=== PATIENT | male | born 1980 | race Caucasian/White ===

== ENCOUNTER 2023-11-09 11:39 | Emergency (ER) | payer BC, OTHER ==
[2023-11-09 13:03] LABS: Absolute Eosinophils 0.1 K/uL (0-0.5); Absolute Lymphocytes (CBC) 1.2 K/uL (0.7-4.9); Absolute Monocytes 0.4 K/uL (0.1-1.3); Absolute Neutrophil 9.3 K/uL (1.8-8.0); Basophils % 0.4 % (0-1.3); Eosinophils % 0.5 % (0-4.4); Hematocrit 49.4 % (39.6-49.0); Hemoglobin 16.4 g/dL (13.6-17.9); Lymphocytes % 11.2 % (15.3-44.8); MCH 30.1 pg (27.0-35.0); MCHC 33.3 g/dL (32.0-36.0); MCV 90.5 fL (80-100); MPV 7.9 fL (7.6-11.3); Monocytes % 3.9 % (3.3-12.3); Platelets 283 thou/uL (152-406); RBC Red Blood Cell Count 5.46 M/uL (4.33-5.43); Red Cell Distribution Width 13.8 % (12.1-15.2)
[2023-11-09 13:07] LABS: PT Prothrombin Time 11.5 SECONDS (9.4-12.5); Protime INR 1.05
[2023-11-09 13:26] LABS: ALT/SGPT 28 U/L (16-61); AST/SGOT 11 U/L (15-37); Albumin 3.8 g/dL (3.4-5.0); Albumin/Globulin Ratio 1.1 (1.1-1.8); Alkaline Phosphatase 53 U/L (45-117); Anion Gap 10.2 mEq/L (5.0-15.0); BUN Blood Urea Nitrogen 19 mg/dL (7-18); Bicarbonate 26 mEq/L (21-32); Bilirubin Total 0.4 mg/dL (0.2-1.0); Globulin 3.6 g/dL (2.3-3.5); Glomerular Filtration Rate 56 ml/min (=/>90); Glucose Level 139 mg/dL (74-106); NT PRO-BNP 8 pg/mL (<125); Potassium 4.2 mEq/L (3.5-5.1); Protein, Total 7.4 g/dL (6.4-8.2); Sodium Level 137 mEq/L (136-145)
--- NOTE | 2023-11-09 13:26 | RAD REPORT ---
EXAM DESCRIPTION: RAD - Chest Single View - 11/09/2023 1:05 pm CLINICAL HISTORY: CHEST PAIN COMPARISON: CHEST SINGLE VIEW dated 12/06/2014 FINDINGS: Lines: None. Lungs: No evidence of edema or pneumonia. Pleural: No significant pleural effusions or pneumothorax. Cardiac: The heart size is within normal limits. Mediastinum: Within normal limits. Bones: No acute fractures. Other: None IMPRESSION: No acute cardiopulmonary disease.
[2023-11-09 13:31] LABS: Bilirubin Direct < 0.2 mg/dL (0-0.2); Bilirubin Indirect, Calculated 0.2 mg/dL (0.2-0.8); Troponin High Sensitivity < 3.0 pg/mL (<58.9)
[2023-11-09] MEDS ORDERED: NA CHLORIDE 0.9% 500 ML ONE (13:44)
--- NOTE | 2023-11-09 14:05 | RAD REPORT ---
EXAM DESCRIPTION: CT - Chest For Pe Angio - 11/09/2023 1:50 pm CLINICAL HISTORY: CHEST PAIN COMPARISON: No comparisons TECHNIQUE: Dynamically enhanced axial 3 mm thick images of the chest were obtained during administra tion of <100> mL Isovue 370 IV contrast. Coronal and oblique reconstruction images were generated and reviewed. Exam utilizes a protocol for optimal evaluation of pulmonary arterial tree. Maximum intensity projections 3D imaging was utilized All CT scans are performed using dose optimization technique as appropriate and may include automated exposure control or mA/KV adjustment according to patient size. FINDINGS: Chest Wall: No suspicious thyroid nodules or pathologic lymphadenopathy. Lungs: No acute abnormality. Pleura: No significant effusions or pneumothorax. Mediastinum/zeinab: No pathologic lymphadenopathy. Pulmonary arteries/Aorta: No filling defect identified. No aortic aneurysm. Heart: No significant pericardial effusion. Normal heart size. Upper abdomen: No acute abnormality. Bones: No acute abnormality. IMPRESSION: Negative for pulmonary embolism. No acute findings in the chest.
--- NOTE | 2023-11-09 14:24 | ER ---
Nurse's Notes [facility] Name: Mc Cunningham Age: 42 yrs Sex: Male : 1980 Arrival Date: 11/09/2023 Time: 11:39 Bed 18 Private MD: Diagnosis: Chest pain, unspecified Presentation: 11/08 12:13 Chief complaint: Patient states: Pt c/o chest tightness, dizziness, SOB with exertion tl4 since returning from [place] on 10/25. Pt states he was treated for respiratory infection. No resolution of symptoms. Coronavirus screen: At this time, the client does not indicate any symptoms associated with coronavirus-19. Ebola Screen: No symptoms or risks identified at this time. Initial Sepsis Screen: Does the patient meet any 2 criteria? No. Patient's initial sepsis screen is negative. Does the patient have a suspected source of infection? No. Patient's initial sepsis screen is negative. Risk Assessment: Do you want to hurt yourself or someone else? Patient reports no desire to harm self or others. Onset of symptoms was October 26, 2023. 12:13 Method Of Arrival: Ambulatory tl4 12:13 Acuity: JAKE 2 tl4 Triage Assessment: 12:17 General: Appears in no apparent distress. Behavior is calm, cooperative. Pain: tl4 Complains of pain in chest. EENT: No signs and/or symptoms were reported regarding the EENT system. Neuro: Reports dizziness. Cardiovascular: Reports chest pain, shortness of breath, Capillary refill < 3 seconds Patient's skin is warm and dry. Respiratory: Reports shortness of breath pain with movement. Historical: - Allergies: 12:16 No Known Allergies; tl4 - PMHx: 12:16 None; tl4 - Immunization history:: Adult Immunizations unknown. - Infectious Disease History:: Denies. - Social history:: Smoking status: Patient reports the use of cigarette tobacco products, smokes one-half pack cigarettes per day. - Family history:: not pertinent. - Hospitalizations: : No recent hospitalization is reported. Screenin:49 [facility] ED Fall Risk Assessment (Adult) History of falling in the last 3 months, db including since admission No falls in past 3 months (0 pts) Confusion or Disorientation No (0 pts) Intoxicated or Sedated No (0 pts) Impaired Gait No (0 pts) Mobility Assist Device Used No (0 pt) Altered Elimination No (0 pt) Score/Fall Risk Level 0 - 2 = Low Risk Oriented to surroundings, Maintained a safe environment. Abuse screen: Denies threats or abuse. Denies injuries from another. Nutritional screening: No deficits noted. Tuberculosis screening: No symptoms or risk factors identified. Assessment: 12:49 Reassessment: Patient appears in no apparent distress at this time. Patient and/or db family updated on plan of care and expected duration. Pain level reassessed. Patient is alert, oriented x 3, equal unlabored respirations, skin warm/dry/pink. General: Appears in no apparent distress. comfortable, Behavior is calm, cooperative. Pain: Complains of pain in chest Pain does not radiate. Pain began suddenly. Neuro: Level of Consciousness is awake, alert, obeys commands, Oriented to person, place, time, situation, Appropriate for age. 14:00 Reassessment: Patient appears in no apparent distress at this time. Patient and/or db family updated on plan of care and expected duration. Pain level reassessed. Patient is alert, oriented x 3, equal unlabored respirations, skin warm/dry/pink. 15:02 Reassessment: Patient appears in no apparent distress at this time. Patient and/or db family updated on plan of care and expected duration. Pain level reassessed. Patient is alert, oriented x 3, equal unlabored respirations, skin warm/dry/pink. Patient states feeling better. Patient states symptoms have improved. Vital Signs: 12:13 BP 150 / 103; Pulse 102; Resp 20; Temp 97.8(TE); Pulse Ox 97% on R/A; Weight 90.26 kg; tl4 Height 5 ft. 8 in. ; Pain 5/10; 12:40 BP 132 / 91; Pulse 99; Resp 18; Pulse Ox 95% on R/A; db 13:30 BP 126 / 79; Pulse 94; Resp 18; Pulse Ox 95% on R/A; db 14:00 BP 127 / 81; Pulse 89; Resp 20; Pulse Ox 95% on R/A; db 14:30 BP 121 / 64; Pulse 92; Resp 18; Pulse Ox 95% on R/A; db 12:13 Body Mass Index 30.26 (90.26 kg, 172.72 cm) tl4 12:13 Pain Scale: Adult tl4 ED Course: 11:41 Patient arrived in ED. am2 12:03 Florentino Vidal MD is Attending Physician. rn 12:16 Triage completed. tl4 12:17 Arm band placed on right wrist. tl4 12:24 EKG done, by ED staff, reviewed by Florentino Vidal MD. nj1 12:37 Shirin Fischer, RN is Primary Nurse. db 12:45 Inserted saline lock: 20 gauge in left forearm, using aseptic technique. Blood db collected. 13:06 XRAY Chest (1 view) In Process Unspecified. EDMS 13:52 CT Chest For PE Angio In Process Unspecified. EDMS 14:11 Patient has correct armband on for positive identification. Bed in low position. Call db light in reach. Side rails up X 1. Provided Education on: labs and radiology. Client placed on continuous cardiac and pulse oximetry monitoring. NIBP monitoring applied. bus monitor on. Pulse ox on. NIBP on. Warm blanket given. Pillow given. 15:02 No provider procedures requiring assistance completed. IV discontinued, intact, db bleeding controlled, No redness/swelling at site. O2 via ROOM AIR. Administered Medications: 13:55 Drug: NS 0.9% IV 500 ml IV at bolus once Route: IV; Rate: bolus; Site: left forearm; db 15:04 Follow up: Response: No adverse reaction; IV Status: Completed infusion; IV Intake: db 500ml Medication: 14:11 VIS not applicable for this client. db Intake: 15:04 IV: 500ml; Total: 500ml. db Outcome: 14:24 Discharge ordered by . rn 15:02 Discharged to home ambulatory, db 15:02 Condition: stable 15:02 Discharge instructions given to patient, Instructed on discharge instructions, follow up and referral plans. 15:04 Patient left the ED. db Signatures: Dispatcher [employer] EDMS Florentino Vidal MD MD rn Moreno, Amanda am2 Shirin Fischer, RN RN db Aracelis Lehman RN RN nj1 Dallin Fuentes RN RN tl4
--- NOTE | 2023-11-09 14:24 | EDPHYS ---
Physician Documentation [facility] Name: Mc Cunningham Age: 42 yrs Sex: Male : 1980 Arrival Date: 11/09/2023 Time: 11:39 Bed 18 Private MD: ED Physician Florentino Vidal HPI: 11/08 13:30 This 42 yrs old Male presents to ER via Ambulatory with complaints of Chest Tightness, rn Dizziness, Jaw Pain. 13:30 The patient or guardian reports chest pain that is located primarily in the substernal rn area. 13:31 Onset: 2 week(s) ago. The pain does not radiate. Associated signs and symptoms: rn Pertinent positives: lightheadedness, shortness of breath, Pertinent negatives: abdominal pain, syncope. The chest pain is described as squeezing. Duration: The patient or guardian reports multiple episodes, that are intermittent. Modifying factors: The symptoms are alleviated by nothing. the symptoms are aggravated by exertion. Severity of pain: At its worst the pain was mild in the emergency department the pain is unchanged. The patient has not experienced similar symptoms in the past. Patient reports intermittent chest tightness for the last 2 weeks. Did have a trip to [place] with a direct flight. Denies history of DVT or PE. No leg pain or swelling. Upon returning patient went to [place] [facility] and diagnosed with upper respiratory infection. Reports symptoms still present and worse with exertion. Of note patient's father had 2 heart attacks by the age of 42 which is patient's age currently.. Historical: - Allergies: 12:16 No Known Allergies; tl4 - PMHx: 12:16 None; tl4 - Immunization history:: Adult Immunizations unknown. - Infectious Disease History:: Denies. - Social history:: Smoking status: Patient reports the use of cigarette tobacco products, smokes one-half pack cigarettes per day. - Family history:: not pertinent. - Hospitalizations: : No recent hospitalization is reported. ROS: 13:31 Constitutional: Negative for fever, chills, and weight loss, Cardiovascular: Positive rn for chest pain Respiratory: Positive for shortness of breath Abdomen/GI: Negative for abdominal pain, nausea, vomiting, diarrhea, and constipation, MS/Extremity: Negative for injury and deformity, Neuro: Negative for headache, weakness, numbness, tingling, and seizure, Exam: 13:31 Constitutional: This is a well developed, well nourished patient who is awake, alert, rn and in no acute distress. Cardiovascular: Tachycardic, regular. No pulse deficits. Respiratory: Mild tachypnea, Abdomen/GI: Soft, non-tender MS/ Extremity: Pulses equal, no cyanosis Neuro: Awake and alert, GCS 15 14:21 ECG was reviewed by the Attending Physician. rn Vital Signs: 12:13 BP 150 / 103; Pulse 102; Resp 20; Temp 97.8(TE); Pulse Ox 97% on R/A; Weight 90.26 kg; tl4 Height 5 ft. 8 in. ; Pain 5/10; 12:40 BP 132 / 91; Pulse 99; Resp 18; Pulse Ox 95% on R/A; db 13:30 BP 126 / 79; Pulse 94; Resp 18; Pulse Ox 95% on R/A; db 14:00 BP 127 / 81; Pulse 89; Resp 20; Pulse Ox 95% on R/A; db 14:30 BP 121 / 64; Pulse 92; Resp 18; Pulse Ox 95% on R/A; db 12:13 Body Mass Index 30.26 (90.26 kg, 172.72 cm) tl4 12:13 Pain Scale: Adult tl4 MDM: 12:03 Patient medically screened. rn 14:21 Differential diagnosis: acute myocardial infarction, acute pericarditis, anxiety, rn coronary artery disease gastroesophageal reflux disease (GERD), pericarditis, pneumonia, pneumothorax, pulmonary embolus, stable angina. HEART Score: History: Moderately Suspicious (1), ECG: Normal (0), Age: < or = 45 years (0), Risk Factors: No Risk Factors Known (0), Troponin: < or = 1 x Normal Limit (0), Total Score = 1. Data reviewed: vital signs, nurses notes, lab test result(s), EKG, radiologic studies. Consideration of Admission/Observation Escalation of care including admission/observation considered. Admission considered for cardiac workup, recommended admission to the patient, patient declines and would rather do this as an outpatient. 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 Return precautions given and understood.. Counseling: I had a detailed discussion with the patient and/or guardian regarding the historical points, exam findings, and any diagnostic results supporting the discharge/admit diagnosis, lab results, radiology results, the need for outpatient follow up, for definitive care, a home fire alarm installer, to return to the emergency department if symptoms worsen or persist or if there are any questions or concerns that arise at home. Special discussion:. 11/08 12:31 Order name: Basic Metabolic Panel; Complete Time: 13:35 rn 11/08 12:31 Order name: CBC with Diff; Complete Time: 13:35 rn 11/08 12:31 Order name: LFT's; Complete Time: 13:35 rn 11/08 12:31 Order name: NT PRO-BNP; Complete Time: 13:35 rn 11/08 12:31 Order name: PT-INR; Complete Time: 13:35 11/08 12:31 Order name: Troponin HS; Complete Time: 13:35 rn 11/08 12:31 Order name: XRAY Chest (1 view); Complete Time: 13:35 11/08 12:31 Order name: CT Chest For PE Angio; Complete Time: 14:09 rn 11/08 12:31 Order name: EKG; Complete Time: 12:32 rn 11/08 12:10 Order name: Cardiac monitoring; Complete Time: 12:48 tl4 11/08 12:10 Order name: EKG - Nurse/Tech; Complete Time: 12:23 tl4 11/08 12:10 Order name: IV Saline Lock; Complete Time: 12:48 tl4 11/08 12:10 Order name: Labs collected and sent; Complete Time: 12:48 tl4 11/08 12:10 Order name: O2 Per Protocol; Complete Time: 12:48 tl4 11/08 12:10 Order name: O2 Sat Monitoring; Complete Time: 12:48 tl4 EC:21 Rate is 100 beats/min. Rhythm is regular. QRS [place] is Normal. SD interval is normal. rn QRS interval is normal. QT interval is normal. No Q waves. T waves are Normal. No ST changes noted. Clinical impression: Normal ECG. Interpreted by me. Reviewed by me. Administered Medications: 13:55 Drug: NS 0.9% IV 500 ml IV at bolus once Route: IV; Rate: bolus; Site: left forearm; db 15:04 Follow up: Response: No adverse reaction; IV Status: Completed infusion; IV Intake: db 500ml Disposition Summary: 11/09/23 14:24 Discharge Ordered Notes: Location: Home rn Problem: new rn Symptoms: have improved rn Condition: Stable rn Diagnosis - Chest pain, unspecified rn Followup: rn - With: Private Physician - When: As needed - Reason: Recheck today's complaints, Re-evaluation by your physician Discharge Instructions: - Discharge Summary Sheet rn - Nonspecific Chest Pain, Adult rn Forms: - Medication Reconciliation Form rn - Antibiotic workers compensation defense attorney - Prescription Opioid Use rn - Patient Portal Instructions rn - Leadership Thank You Letter rn Signatures: Dispatcher [employer] Florentino Recio MD MD rn Benton, Danielle RN RN aDllin Mast RN RN tl4
[2023-11-09 15:28] VITALS: TEMP 97.8
[2023-11-09 15:45] VITALS: BP 121/64; O2SAT 95
--- NOTE | 2023-11-10 14:11 | EKG ---
Test Date: 2023-11-09 Test Time: 12:20:58 Motorcycle Service Technician: TL MEASUREMENT RESULTS: Intervals: Rate: 100 LA: 148 QRSD: 74 QT: 318 QTc: 410 [place]: P: 60 LA: 148 QRS: 34 T: 42 INTERPRETIVE STATEMENTS: Normal sinus rhythm Normal ECG No previous ECG available for comparison Electronically Signed On 11-10-23 14:07:21 CDT by Nitesh Clark
== END 2023-11-09 15:04 | disposition home or self-care (01) ==
LOC: ER 11:39
DX: R07.9 Chest pain, unspecified (principal); F17.210 Nicotine dependence, cigarettes, uncomplicated
CPT/HCPCS: 85025; 80048; 36415; 85610; 80076; 84484; 83880; 71275; 71045; Q9967; J7040; 93005; 96360; 99285

== ENCOUNTER 2024-04-21 12:41 | Emergency (ER) | payer BC ==
[2024-04-21] MEDS ORDERED: dexAMETHasone 10 MG/ML VIAL ONE (13:39)
[2024-04-21 13:40] LABS: Specific Gravity 1.019 (1.005-1.030); Urine Bilirubin NEGATIVE (Negative); Urine Blood Negative (Negative); Urine Clarity Clear (Clear); Urine Color Light-Yellow (Yellow); Urine Glucose NEGATIVE (Negative); Urine Ketones NEGATIVE (Negative); Urine Microscopic Reflex YN NO UMIC; Urine Nitrite NEGATIVE (Negative); Urine Protein NEGATIVE (Negative); Urine Urobilinogen Normal (Normal); Urine pH 5.5 (5.0-7.0)
[2024-04-21] MEDS ORDERED: MORPHINE 4 MG/ML SYR ONE (13:40)
[2024-04-21] MEDS ORDERED: methocarbamoL 750 MG TAB ONE (13:45)
[2024-04-21] MEDS ORDERED: DIAZEPAM 10 MG/2 ML INJ SYRINGE ONE (14:17)
--- NOTE | 2024-04-21 14:38 | ER ---
Nurse's Notes [facility] Name: Mc Cunningham Age: 43 yrs Sex: Male : 1980 Arrival Date: 04/21/2024 Time: 12:41 Bed 15 Private MD: Diagnosis: Low back pain Presentation: 04/21 12:54 Chief complaint: Patient states: he was lifting about 2.5 weeks ago and he injured kc6 his back. pt states he was seen at [place] and has been going tot he chiropractor but the pain is not any better. Coronavirus screen: At this time, the client does not indicate any symptoms associated with coronavirus-19. Ebola Screen: No symptoms or risks identified at this time. Initial Sepsis Screen: Does the patient meet any 2 criteria? HR > 90 bpm. Does the patient have a suspected source of infection? No. Patient's initial sepsis screen is negative. Risk Assessment: Do you want to hurt yourself or someone else? Patient reports no desire to harm self or others. Onset of symptoms was April 21, 2024. 12:54 Method Of Arrival: Ambulatory [facility] 12:54 Acuity: JAKE 3 kc6 Historical: - Allergies: 12:55 No Known Allergies; kc6 - PMHx: 12:55 Hypercholesterolemia; Myocardial infarction; kc6 - PSHx: 12:55 Stented artery; kc6 - Immunization history:: Adult Immunizations up to date. - Infectious Disease History:: Denies. - Social history:: Smoking status: Reported history of juuling and/or vaping. Screenin:00 [facility] ED Fall Risk Assessment (Adult) History of falling in the last 3 months, me1 including since admission No falls in past 3 months (0 pts) Confusion or Disorientation No (0 pts) Intoxicated or Sedated No (0 pts) Impaired Gait No (0 pts) Mobility Assist Device Used No (0 pt) Altered Elimination No (0 pt) Score/Fall Risk Level 0 - 2 = Low Risk Maintained a safe environment, Provided non-skid footwear, Hourly rounding (assess needs \T\ fall precautionary measures) done. Abuse screen: Denies threats or abuse. Nutritional screening: No deficits noted. Tuberculosis screening: No symptoms or risk factors identified. Assessment: 13:00 General: Appears uncomfortable, well groomed, well developed, well nourished, Behavior me1 is calm, cooperative, appropriate for age, Reports he was lifting about 2.5 weeks ago and he injured his back. pt states he was seen at [place] and has been going tot he chiropractor but the pain is not any better. Pain: Complains of pain in lumbar area, left low back and right low back Pain does not radiate. Pain currently is 10 out of 10 on a pain scale. Quality of pain is described as sharp, Pain began suddenly, Is continuous. Neuro: Level of Consciousness is awake, alert, obeys commands, Oriented to person, place, time, situation, Appropriate for age. Cardiovascular: Patient's skin is warm and dry. Respiratory: Airway is patent Respiratory effort is even, unlabored, Respiratory pattern is regular, symmetrical. GI: No signs and/or symptoms were reported involving the gastrointestinal system. : No signs and/or symptoms were reported regarding the genitourinary system. EENT: No signs and/or symptoms were reported regarding the EENT system. Derm: Skin is intact, is healthy with good turgor, Skin is pink, warm \T\ dry. Musculoskeletal: Circulation, motion, and sensation intact. Range of motion: intact in all extremities, Reports pain in lumbar area, left low back and right low back. Injury Description: he was lifting about 2.5 weeks ago and he injured his back. pt states he was seen at [place] and has been going tot he chiropractor but the pain is not any better. Vital Signs: 12:54 BP 143 / 97; Pulse 92; Resp 18 S; Pulse Ox 98% on R/A; Weight 92.53 kg (R); Height 5 kc6 ft. 8 in. (R); Pain 10/10; 14:27 Pain 4/10; me1 14:53 BP 136 / 91; Pulse 90; Resp 17; Temp 98.6; Pulse Ox 100% ; me1 12:54 Body Mass Index 31.02 (92.53 kg, 172.72 cm) kc6 12:54 Pain Scale: Adult kc6 14:27 Pain Scale: Adult me1 ED Course: 12:43 Patient arrived in ED. ra3 12:44 Armando Lora PA is PHCP. cp 12:44 Florentino Vidal MD is Attending Physician. cp 12:55 Triage completed. kc6 12:55 Arm band placed on. kc6 12:58 Anel Jack, RN is Primary Nurse. me1 13:00 Patient has correct armband on for positive identification. Bed in low position. Call me1 light in reach. Side rails up X2. Provided Education on: POC. Verbalized understanding.. Client placed on continuous cardiac and pulse oximetry monitoring. NIBP monitoring applied. Pulse ox on. NIBP on. 13:00 No provider procedures requiring assistance completed. Patient did not have IV access me1 during this emergency room visit. Administered Medications: 13:45 CANCELLED (Physician Discretion): [id number] mg IM once cp 13:55 Drug: Dexamethasone IM 10 mg IM once Route: IM; Site: right deltoid; me1 14:27 Follow up: Response: No adverse reaction me1 13:55 Drug: morphine IM 4 mg IM once Route: IM; Site: right deltoid; me1 14:27 Follow up: Pain 4/10 Adult; Response: No adverse reaction; Pain is decreased me1 13:55 Not Given (Patient Refused; med gives patient bad hiccupss): [id number] mg PO onceme1 14:27 Drug: Diazepam IM 10 mg IM once Route: IM; Site: left deltoid; me1 14:39 Follow up: Response: No adverse reaction; Pain is decreased me1 14:46 Drug: Lidoderm Topical Patch 5 % (700 mg/patch) 1 patches Topical once; leave on for 12 me1 hours; cover most painful area; may cut into smaller pieces {Note: lower back.} Route: Topical; Site: affected area; Medication: 13:00 VIS not applicable for this client. me1 Outcome: 14:38 Discharge ordered by . cp 14:53 Discharged to home ambulatory, with family, me1 14:53 Condition: stable 14:53 Discharge instructions given to patient, family, Instructed on discharge instructions, follow up and referral plans. medication usage, Demonstrated understanding of instructions, follow-up care, medications, Prescriptions given X 3, 14:54 Patient left the ED. me1 Signatures: Armando Lora PA PA cp Campbell, Kaitlyn, RN RN 6 Anel Jack, RN RN il1 Pauline Del Rio ra3 Corrections: (The following items were deleted from the chart) 14:47 12:54 Chief complaint: Patient states: he was lifting about 2.5 weeks ago and he me1 injured his back. pt states he was seen at [place] and has been going tot he chiropractor but the pain is not any better 6 : 14:47 General: Appears uncomfortable, well groomed, well developed, well nourished, me1 Behavior is calm, cooperative, appropriate for age, Reports he was lifting about 2.5 weeks ago and he injured his back. pt states he was seen at [place] and has been going tot he chiropractor but the pain is not any better me1 14: 14:47 Pain: Complains of pain in lumbar area, left low back and right low back Pain me1 does not radiate. Pain currently is 10 out of 10 on a pain scale. Quality of pain is described as sharp, Pain began suddenly, Is continuous, me1 : 14:47 Neuro: Level of Consciousness is awake, alert, obeys commands, Oriented to me1 person, place, time, situation, Appropriate for age il1 : 14:47 Cardiovascular: Patient's skin is warm and dry. me1 il1 : 14:47 Respiratory: Airway is patent Respiratory effort is even, unlabored, Respiratory il1 pattern is regular, symmetrical, me1 : 14:47 GI: No signs and/or symptoms were reported involving the gastrointestinal system. me1 me1 : 14:47 : No signs and/or symptoms were reported regarding the genitourinary system. [facility] 14:47 EENT: No signs and/or symptoms were reported regarding the EENT system. me1 il1 : 14:47 Derm: Skin is intact, is healthy with good turgor, Skin is pink, warm \T\ dry. me1 il1 : 14:47 Musculoskeletal: Circulation, motion, and sensation intact. Range of motion: me1 intact in all extremities, Reports pain in lumbar area, left low back and right low back me1 : 14:47 Injury Description: he was lifting about 2.5 weeks ago and he injured his me1 back. pt states he was seen at [place] and has been going tot he chiropractor but the pain is not any better me1
--- NOTE | 2024-04-21 14:38 | EDPHYS ---
Physician Documentation [facility] Name: Mc Cunningham Age: 43 yrs Sex: Male : 1980 Arrival Date: 04/21/2024 Time: 12:41 Bed 15 Private MD: ED Physician Florentino Vidal HPI: 04/21 13:15 This 43 yrs old Male presents to ER via Ambulatory with complaints of Back Pain, Back cp Injury. 13:15 The patient presents with pain that is acute, and an injury. The symptoms are located cp in the low back. Onset: The symptoms/episode began/occurred 2.5 week(s) ago. The pain radiates to the pelvis. The problem was sustained resulted from performing a clean and jerk weight lifting exercise. Modifying factors: the patient symptoms are aggravated by standing, walking. 13:15 Associated signs and symptoms: Pertinent negatives: abdominal pain, constipation, cp incontinence, numbness, urinary retention, saddle anesthesia. Patient reports having CT of lower back performed at [facility] after injury and comes in today wanting MRI as suggested by chiropractor. Historical: - Allergies: 12:55 No Known Allergies; kc6 - PMHx: 12:55 Hypercholesterolemia; Myocardial infarction; kc6 - PSHx: 12:55 Stented artery; kc6 - Immunization history:: Adult Immunizations up to date. - Infectious Disease History:: Denies. - Social history:: Smoking status: Reported history of juuling and/or vaping. ROS: 13:20 Constitutional: Negative for body aches, chills, fever, poor PO intake, cp 13:20 Cardiovascular: Negative for chest pain, edema, palpitations, cp 13:20 Eyes: Negative for injury, pain, redness, and discharge, cp 13:20 ENT: Negative for drainage from ear(s), ear pain, sore throat, difficulty swallowing, difficulty handling secretions, 13:20 Respiratory: Negative for cough, shortness of breath, wheezing, 13:20 Abdomen/GI: Negative for abdominal pain, vomiting, diarrhea, constipation, bowel incontinence, 13:20 Back: Positive for pain at rest, pain with movement, of the low back, 13:20 : Negative for urinary symptoms, difficulty urinating, bladder incontinence, testicular pain 13:20 Neuro: Negative for dizziness, numbness, tingling, weakness, 13:20 All other systems are negative, Exam: 13:25 Constitutional: The patient appears in no acute distress, alert, awake, non-toxic, well cp developed, well nourished, uncomfortable, 13:25 Head/Face: Normocephalic, atraumatic. cp 13:25 Eyes: Periorbital structures: appear normal, Conjunctiva: normal, no exudate, no injection, Sclera: no appreciated abnormality, Lids and lashes: appear normal, bilaterally, 13:25 ENT: External ear(s): are unremarkable, Nose: is normal, Mouth: Lips: moist, Oral mucosa: moist, Posterior pharynx: Airway: no evidence of obstruction, patent, 13:25 Chest/axilla: Inspection: normal, 13:25 Cardiovascular: Rate: normal, Rhythm: regular, 13:25 Respiratory: the patient does not display signs of respiratory distress, Respirations: normal, no use of accessory muscles, no retractions, labored breathing, is not present, Breath sounds: are clear throughout, no decreased breath sounds, no stridor, no wheezing, 13:25 Abdomen/GI: Inspection: abdomen appears normal, Palpation: abdomen is soft and non-tender, in all quadrants, 13:25 Back: pain, that is severe, of the low back area and mid back area, ROM is painful, with all movement, Straight leg raises: of both lower extremities does not illicit pain, 13:25 Neuro: Motor: moves all fours, strength is normal, Sensation: no obvious gross deficits, Gait: is steady, Deep tendon reflexes are 2+ (normal) in the right patellar, right Achilles, left patellar and left Achilles, Vital Signs: 12:54 BP 143 / 97; Pulse 92; Resp 18 S; Pulse Ox 98% on R/A; Weight 92.53 kg (R); Height 5 kc6 ft. 8 in. (R); Pain 10/10; 14:27 Pain 4/10; me1 14:53 BP 136 / 91; Pulse 90; Resp 17; Temp 98.6; Pulse Ox 100% ; me1 12:54 Body Mass Index 31.02 (92.53 kg, 172.72 cm) kc6 12:54 Pain Scale: Adult kc6 14:27 Pain Scale: Adult me1 MDM: 12:54 Medical Screening Exam initiated cp 14:00 Differential diagnosis: ruptured disc, Ureterolithiasis vertebral fracture, spinal cp stenosis, cauda equina, bulging disc. 14:37 Data reviewed: vital signs, nurses notes, and as a result, I will discharge patient. cp 14:37 I considered the following discharge prescriptions or medication management in the cp emergency department Medications were administered in the Emergency Department. See MAR. Counseling: I had a detailed discussion with the patient and/or guardian regarding the historical points, exam findings, and any diagnostic results supporting the discharge/admit diagnosis, the need for outpatient follow up, a family practitioner, to return to the emergency department if symptoms worsen or persist or if there are any questions or concerns that arise at home. Response to treatment: the patient's symptoms have markedly improved after treatment, and as a result, I will discharge patient. 04/21 12:58 Order name: Urinalysis w/ reflexes; Complete Time: 14:30 cp 04/21 14:30 Interpretation: Reviewed. cp Administered Medications: 13:45 CANCELLED (Physician Discretion): [id number] mg IM once cp 13:55 Drug: Dexamethasone IM 10 mg IM once Route: IM; Site: right deltoid; me1 14:27 Follow up: Response: No adverse reaction me1 13:55 Drug: morphine IM 4 mg IM once Route: IM; Site: right deltoid; me1 14:27 Follow up: Pain 4/10 Adult; Response: No adverse reaction; Pain is decreased me1 13:55 Not Given (Patient Refused; med gives patient bad hiccupss): [id number] mg PO onceme1 14:27 Drug: Diazepam IM 10 mg IM once Route: IM; Site: left deltoid; me1 14:39 Follow up: Response: No adverse reaction; Pain is decreased me1 14:46 Drug: Lidoderm Topical Patch 5 % (700 mg/patch) 1 patches Topical once; leave on for 12 me1 hours; cover most painful area; may cut into smaller pieces {Note: lower back.} Route: Topical; Site: affected area; Disposition: 19:38 Co-signature as Attending Physician, Florentino Vidal MD. rn Disposition Summary: 04/21/24 14:38 Discharge Ordered Notes: Location: Home cp Problem: an ongoing problem cp Symptoms: have improved cp Condition: Stable cp Diagnosis - Low back pain cp Followup: cp - With: Private Physician - When: 2 - 3 days - Reason: Recheck today's complaints Discharge Instructions: - Discharge Summary Sheet cp - Acute Back Pain, Adult cp - Heat Therapy cp - Back Exercises cp Forms: - Medication Reconciliation Form cp - Antibiotic Education cp - Prescription Opioid Use cp - Patient Portal Instructions cp - Leadership Thank You Letter cp Prescriptions: - Baclofen 10 mg Oral tablet - take 1 tablet ORAL route 3 times per day; 20 tablet; Refills: 0, Product cp Selection Permitted - Diclofenac Sodium 75 mg Oral tablet, delayed release (enteric coated) - take 1 tablet ORAL route 2 times per day; 20 tablet; Refills: 0, Product cp Selection Permitted - Medrol (Luis) 4 mg Oral Tablets, Dose Pack - take 1 tablet ORAL route as directed - follow package instructions; 1 packet; cp Refills: 0, Product Selection Permitted Signatures: Dispatcher [employer] EDMS Florentino Vidal MD MD rn Armando Lora PA PA cp Natalya De La Torre RN RN kc6 Anel Jack RN RN me1 Corrections: (The following items were deleted from the chart) 12:58 12:58 Urinalysis+U.LAB.BRZ ordered. EDMS EDMS 13:45 13:11 Orphenadrine IM 60 mg IM once ordered. cp cp
[2024-04-21] MEDS ORDERED: LIDOCAINE 4% PATCH ONE (14:41)
[2024-04-21 15:49] VITALS: BP 136/91; TEMP 98.6; O2SAT 100
== END 2024-04-21 14:54 | disposition home or self-care (01) ==
LOC: ER 12:41
DX: M54.50 Low back pain, unspecified (principal)
CPT/HCPCS: 81003; 96372; 99284; J2003; J3360; J1100